=== PATIENT | female | born 1985 | race Caucasian/White ===

== ENCOUNTER → 2023-03-18 11:45 | Outpatient (BNVA) | payer MEDICAID, SELFPAY | PROVIDERS: PCP Nurse Practitioner Family; Referring Provider Nurse Practitioner Family; Visit Provider Psychiatry & Neurology Neurology | DX: I72.8 Aneurysm of other specified arteries (principal); H57.052 Tonic pupil, left eye; G90.A Postural orthostatic tachycardia syndrome [POTS] | CPT/HCPCS: 99203 ==

== ENCOUNTER 2023-04-21 09:15 | Outpatient (CLI) | payer MEDICAID, SELFPAY ==
--- NOTE | 2023-04-21 09:30 | MR_ITS ---
WS: [id number] MRA ANGIOGRAPHY [place] HISTORY: I67.1 - Cerebral aneurysm, nonruptured COMPARISON: None available. TECHNIQUE: 3-D MR angiography is performed of the [place] of [place]. All images are reviewed including source images. Dominant distal LEFT vertebral artery. Very small caliber distal RIGHT vertebral artery. Normal basil ar artery. Persistent RIGHT posterior cerebral artery circulation. Posterior communicating priscilla janee are both well identified. Seen best on the anterior spin imaging through the [place] of [place] is a focal outpouching near the g enu of the intracranial carotid artery measuring 4 mm. This is most consistent with an ophthalmic art lenore aneurysm. No prior studies are available for comparison. No additional aneurysms are identified. Middle cerebral and anterior cerebral arteries are normal. No high-grade stenoses or occlusions. Norm al anterior communicating artery. IMPRESSION: 1. Patient has a known RIGHT ophthalmic artery aneurysm. Aneurysm is identified today measuring appro ximately 4 mm from the region of the RIGHT ophthalmic artery. No prior studies are available to katherin re for any interval change. 2. Just small caliber distal RIGHT vertebral artery. 3. No additional aneurysms.
--- NOTE | 2023-04-21 09:45 | MR_ITS ---
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 TECHNIQUE: Multiplanar imaging performed through the brain with MultiHance 10 ml's IV. No acute infarcts are seen. Larson-white matter differentiation is well preserved. No susceptibility artifacts or prior lacunar infarcts. Ventricles and extra-axial spaces are normal. Clivus and pituitary gland are normal. Visualized posterior fossa and brainstem are also normal. Postcontrast images are negative for masses or vascular malformations. Dural venous sinuses are normal. Paranasal sinuses: Well aerated with no significant disease. Mastoid air cells: Normal. Calvarium and scalp: Normal. IMPRESSION: 1. Normal MRI brain with contrast. 2. No intracranial hemorrhage or atrophy. 3. No prior infarct.
[2023-04-21] MEDS: gadobenate dimeglumine 20 mL vial IV (10:58)
== END 2023-04-21 09:16 | disposition home or self-care (01) ==
PROVIDERS: PCP Nurse Practitioner Family; Visit Provider Psychiatry & Neurology Neurology
DX: I67.1 Cerebral aneurysm, nonruptured (principal); I72.8 Aneurysm of other specified arteries
CPT/HCPCS: 70544; 70553; A9577

== ENCOUNTER → 2024-03-13 15:30 | Outpatient (BNVA) | payer MEDICAID, SELFPAY | PROVIDERS: PCP Nurse Practitioner Family; Visit Provider Psychiatry & Neurology Neurology | DX: I72.8 Aneurysm of other specified arteries (principal) | CPT/HCPCS: 36415; 80048; 81241; 82306; 82607; 82746; 83090; 83735; 83921; 84425; 84439; 84443; 84481; 84591; 85025; 85210; 85300; 85303; 85306; 85613; 85730; 86146; 86147; 99212 ==

== ENCOUNTER 2024-04-05 09:51 | Outpatient (CLI) | payer MEDICAID, SELFPAY ==
--- NOTE | 2024-04-05 09:45 | MR_ITS ---
WS: [id number] MRA HEAD TECHNIQUE: Axial 3-D TOF images obtained with axial images and axial, sagittal, and coronal 2-D refor matted images. 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 This is unc hanged in appearance compared to previous. No evidence of progression. This appears separate from the takeoff of the ophthalmic artery. Dominant LEFT vertebral artery. Tiny RIGHT distal vertebral artery is unchanged. Basilar artery is pa tent. Patent LEFT posterior communicating artery. 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 Normal vascularity to t he TANK CAR INSPECTOR territory bilaterally. Both ICAs are patent at the skull base. Patent anterior communicating artery. Normal vascularity to t he TRISH and MCA territories bilaterally. No evidence of proximal flow-limiting stenosis. MR/MR angio head wo con [id number] IMPRESSION: 1. 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 2. 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 3. No other suspicious findings.
== END 2024-04-05 09:52 | disposition home or self-care (01) ==
LOC: RAD 09:52
PROVIDERS: PCP Nurse Practitioner Family; Visit Provider Psychiatry & Neurology Neurology
DX: I72.0 Aneurysm of carotid artery (principal)
CPT/HCPCS: 70544

== ENCOUNTER → 2025-01-16 13:15 | Outpatient (BNVA) | payer MEDICAID, SELFPAY | PROVIDERS: PCP Nurse Practitioner Family; Visit Provider Psychiatry & Neurology Neurology | DX: I72.9 Aneurysm of unspecified site (principal) | CPT/HCPCS: 99212 ==